=== PATIENT | female | born 1985 | race Hispanic/Latino ===

== ENCOUNTER 2020-12-28 08:14 | Emergency (ER) | payer OTHER ==
[~2020-12-28] VITALS: Ht 162.6 cm; Wt 81.6 kg
[2020-12-28] MEDS ORDERED: FAMOTIDINE 20 MG/2 ML VIAL IV STA (09:21)
[2020-12-28] MEDS ORDERED: DONNATAL/LIDOCAINE/MAALOX 30 ML SUSP PO ONE (09:30)
[2020-12-28] MEDS ORDERED: DICYCLOMINE HCL 10 MG CAP PO ONE (09:30)
[2020-12-28] MEDS ORDERED: MAGNESIUM/ALUMINUM/SIMETHICONE 30 ML UDC ONE (09:44)
[2020-12-28] MEDS ORDERED: LIDOCAINE VISC 2% SOLN 15 ML UDC ONE (09:44)
[2020-12-28] MEDS ORDERED: DICYCLOMINE HCL 10 MG CAP ONE (09:44)
[2020-12-28] MEDS ORDERED: BELLADONNA ALK/PHENOBARBITAL 5 ML UDC ONE (09:44)
[2020-12-28] MEDS ORDERED: SODIUM CHLORIDE 0.9% 1000ML 1,000 ML IV SCH (09:45)
[2020-12-28] MEDS ORDERED: DIPHENHYDRAMINE HCL INJ 50 MG/ML VIAL ONE (10:25)
[2020-12-28] MEDS ORDERED: METHYLPREDNISOLONE SOD SUCC 125 MG/2ML VIAL ONE (10:26)
[2020-12-28] MEDS ORDERED: METHYLPREDNISOLONE SOD SUCC 125 MG/2ML VIAL IV ONE (10:30)
[2020-12-28] MEDS ORDERED: DIPHENHYDRAMINE HCL INJ 50 MG/ML VIAL IV ONE (10:30)
[2020-12-28] MEDS ORDERED: FAMOTIDINE40 MG PO (11:44)
[2020-12-28] MEDS ORDERED: PREDNISONE20 MG PO (11:47)
== END 2020-12-28 12:23 | disposition home or self-care (01) ==
LOC: FSED 08:30
DX: R10.13 Epigastric pain (principal); K29.70 Gastritis, unspecified, without bleeding
CPT/HCPCS: 74177; 99283; J1200; J2930; J7030

== ENCOUNTER 2022-09-19 10:23 | Emergency (ER) | payer OTHER ==
[~2022-09-19] VITALS: Ht 162.6 cm; Wt 81.6 kg
[~2022-09-19 10:23] MED LIST: FAMOTIDINE40 MG PO; PREDNISONE20 MG PO
[2022-09-19 10:35] VITALS: O2SAT 100
[2022-09-19] MEDS ORDERED: TRAMADOL HCL 50 MG TAB PO ONE (11:00)
[2022-09-19] MEDS ORDERED: TRAMADOL HCL 50 MG TAB ONE (11:02)
[2022-09-19] MEDS ORDERED: ULTRAM 50MG50 MG PO ×2 (11:05→11:07)
== END 2022-09-19 11:16 | disposition home or self-care (01) ==
LOC: FSED 11:02
DX: M25.562 Pain in left knee (principal); M25.462 Effusion, left knee
CPT/HCPCS: 99284